=== PATIENT | female | born 1985 | race Asian ===

== ENCOUNTER 2018-02-14 17:51 | Inpatient (IN) | payer OTHER ==
[~2018-02-14 17:51] MED LIST: Dinoprostone* 10 MG VAG.SUPP VAGINAL ONE
--- NOTE | 2018-02-14 18:58 | HP ---
General Information - General Information Maternal Age: 32 Grav: 1 Para: 0 SAB: 0 IEA: 0 Estimated Due Date: 02/07/18 Determined By: LMP Gestational Age in Weeks/Days: 41 w 0d Maternal Blood Type and Rh: AB Positive - Results this Serology/RPR Result: Non-Reactive Rubella Result: Immune HBsAg Result: Negative HIV Result: Negative GBS Culture Result: Negative Past Medical History Pertinent Past Medical History: Non-Contributory Past Medical History Comment: no current problems Pertinent Past Surgical History: None Pertinent Family History: Non-Contributory - Antepartal Records Antepartal Records: Reviewed, Uncomplicated Review of Systems Constitutional: Comfortable CV Complaint: No Respiratory: Shortness of Breath: No Gastrointestinal: No Nausea/Vomiting, Normal Bowel Movement Genitourinary: No Leaking Fluid Musculoskeletal: No Complaint Neurological: No Headache, No Visual Changes Movement: Normal Exam Allergies/Adverse Reactions: Allergies Penicillins Allergy (Unknown, Verified 02/14/18 18:30) See Comment unsure. childhood reaction unknow - Measurements Height: 5 ft 1 in Weight: 130 lb Weight in lbs: [phone] Body Mass Index (BMI): 24.5 Pre- Weight: 97 lb Weight Gained This : 33 lbs and 0 ozs - Exam Breast: - - soft, no masses Extremities: No Edema Heart: Normal Rhythm/Heart Sounds HEENT: No Significant Findings Lungs: Clear Bilaterally Reflexes: DTR 2+ Thyroid: No Thyromegaly - Abdominal Exam Abdomen Exam: Non-Tender - Ultrasound/Biophysical Profile Ultrasound Status: Not Done Targeted Exam Findings Estimated Weight: 7 lbs Cervical Exam: Closed Effacement: Thick Station: -1 Presenting Part: Vertex Membrane Status: Intact EFM Findings - External Monitor Findings Baseline Heart Rate: 130 External Monitor Findings: Accelerations Present, No Pattern of Variable or Late Decelerations, Variability Moderate, Baseline Stable External Monitor Findings Comment: category 1 Contractions: Irregular, Mild - every 8-10 min Assessment/Plan - Assessment primip at 41 wks, unripe cervix, for ripening - Obstetrical Risk Factors Obstetrical Risk Factors: Post-Dates - Plan Plan: Cervical Ripening, Admit - Anticipate Vaginal Delivery - Date/Time of Admission Date of Admission: 02/14/18 Time of Admission: 18:58
[2018-02-15] MEDS ORDERED: Oxytocin in LR* 20 UNITS/1,000 ML BAG IVPB SCH (10:00)
[2018-02-15] MEDS ORDERED: Lidocaine 1%* 5 ML VIAL ONE (10:16)
[2018-02-15 11:23] LABS: ABS Basophils 0 10^3/ul (0-0.2); ABS Eosinophils 0 10^3/ul (0-0.6); ABS Lymphocytes 1.4 10^3/ul (1.0-4.8); ABS Monocytes 0.4 10^3/ul (0-0.8); ABS Neutrophils 8.2 10^3/ul (1.5-7.7); ABS Nucleated RBC 0 10^3/ul; Eosinophil % 0.1 % (0-6); Hematocrit 39 % (35-47); Hemoglobin 12.9 g/dl (12.0-16.0); Lymphocyte % 13.9 % (25-47); Mean Corpuscular HGB Conc 33 g/dl (31-36); Mean Corpuscular Hemoglobin 31 pg (27-31); Mean Corpuscular Volume 92 fL (80-97); Mean Platelet Volume 8.6 fL (7.4-10.4); Nucleated Red Blood Cells % 0; Platelet Count 225 10^3/ul (150-450); Red Cell Distribution Width 13 % (10.5-15)
[2018-02-15] MEDS ORDERED: OBEPIDURAL* 250 ML EPIDURAL ONE (19:23)
[2018-02-15] MEDS ORDERED: EPHEDrine (Pressors)* 50 MG/ML VIAL IV PUSH PRN ×2 (20:38)
[2018-02-15] MEDS ORDERED: Famotidine TAB* 20 MG PO PRN (20:38)
[2018-02-15] MEDS ORDERED: Sodium Citrate/Citric Acid* 15 ML UDC PO PRN (20:38)
[2018-02-15] MEDS ORDERED: Phenylephrine IV* 40 MCG/ML 10 ML SYRINGE IV PUSH PRN ×2 (20:38)
[2018-02-15] MEDS ORDERED: OBEPIDURAL* 250 ML EPIDURAL SCH (21:00)
[2018-02-16] MEDS ORDERED: Witch Hazel PAD* JAR ONE (10:06)
[2018-02-16] MEDS ORDERED: Dibucaine 1% 28.35 GM TUBE ONE (10:06)
[2018-02-16] MEDS ORDERED: Witch Hazel PAD* JAR TOPICAL PRN (11:00)
[2018-02-16] MEDS ORDERED: Acetaminophen TAB* 325 MG PO PRN (11:00)
[2018-02-16] MEDS ORDERED: Glycerin ADULT SUPP PR PRN (11:00)
[2018-02-16] MEDS ORDERED: Dibucaine 1% 28.35 GM TUBE PR PRN (11:00)
--- NOTE | 2018-02-16 11:10 | PROCNOTE ---
[facility] OB: Delivery Note - Delivery A Date of : 02/16/18 Time of : 09:54 [place] Sex: Male Weight at : 6 lb 8 oz Score 1 Minute: 8 Score 5 Minutes: 8 Gestational Age in Weeks and Days at Delivery: 41 Weeks and 2 Days Delivery Method: Spontaneous Vaginal Labor: Induced Did Patient attempt ?: N/A, No Previous Amniotic Fluid: Meconium Estimated Blood Loss: 400 Anesthesia/Analgesia: CEI for Labor Anesthesia Comment: Epidural placed by Dr. Valadez Delivered By: Neha Galeano - Nursery Level of Nursery: NICU - Perineum Perineal Injury: 3rd Degree Extension - and left sulcus tear both repaired Perineal Repair: Repair by Dr. Loza. See MD note - Events Delivery Events of Note: Pitocin During Labor - Additional Delivery Notes Additional Delivery Notes: Pt admitted for postdates induction. Received Cervidil x 1 followed by IV pitocin and amniotomy which led to onset active labor with expected progression to complete. Length of active phase: 11 hours, 14 min. Pushed x 2 hours, 16 min. liveborn male. Slow, controlled delivery of head. VIVIAN to ROT. Shoulders followed easily. Nuchal cord x 1, cord around arm x 1 and cord around leg x 1 all reduced after delivery. vigorous with spontaneous cry. HR> 110bpm. Delivered to maternal abdomen. Apgars 8/8. Cord clamped x 2 and cut by FOB. [place] continued to work to breath with minimal cry despite stimulation and grunting. Moved to warmer for evaluation by special care nurse and neonatology. to NICU for observation. Spontaneous delivery intact placenta. Membranes complete. Fundus firmed to massage with IV pitocin infusing. Careful inspection of perineum showed a partial 3rd degree tear and left sulcus tear. Dr. Loza to bedside for evaluation and repair. See MD notes. EBL 400mL. At time of note mother remains in delivery room, stable. [place] stable in NICU.
[2018-02-16] MEDS ORDERED: Simethicone TAB* 80 MG TAB.CHEW PO SCH (12:30)
[2018-02-16] MEDS ORDERED: Ammonia Inhalant* 1 EA AMP ONE (13:01)
[2018-02-16] MEDS: Docusate CAP* 100 MG PO SCH ×2 (15:48→20:26)
[2018-02-16] MEDS: Ibuprofen TAB* 600 MG PO PRN (20:29)
[2018-02-17 06:43] LABS: ABS Basophils 0 10^3/ul (0-0.2); ABS Eosinophils 0 10^3/ul (0-0.6); ABS Lymphocytes 1.4 10^3/ul (1.0-4.8); ABS Monocytes 0.9 10^3/ul (0-0.8); ABS Neutrophils 10.3 10^3/ul (1.5-7.7); ABS Nucleated RBC 0 10^3/ul; Eosinophil % 0.3 % (0-6); Hematocrit 23 % (35-47); Hemoglobin 7.7 g/dl (12.0-16.0); Lymphocyte % 11.4 % (25-47); Mean Corpuscular HGB Conc 33 g/dl (31-36); Mean Corpuscular Hemoglobin 31 pg (27-31); Mean Corpuscular Volume 93 fL (80-97); Mean Platelet Volume 8.1 fL (7.4-10.4); Nucleated Red Blood Cells % 0; Platelet Count 152 10^3/ul (150-450); Red Blood Count 2.51 10^6/ul (4.00-5.40); Red Cell Distribution Width 13 % (10.5-15); White Blood Count 12.6 10^3/ul (3.5-10.8)
[2018-02-17] MEDS: Ibuprofen TAB* 600 MG PO PRN ×3 (08:04→21:36)
[2018-02-17] MEDS: Docusate CAP* 100 MG PO SCH ×3 (08:04→21:36)
[2018-02-17] MEDS: Ferrous Gluconate TAB* 324 MG TAB PO SCH ×2 (08:22→21:35)
[2018-02-18] MEDS: Ibuprofen TAB* 600 MG PO PRN ×3 (05:55→18:34)
[2018-02-18] MEDS: Ferrous Gluconate TAB* 324 MG TAB PO SCH (08:15)
[2018-02-18] MEDS: Docusate CAP* 100 MG PO SCH ×2 (08:15→13:55)
[2018-02-18 08:55] VITALS: BP 101/50
== END 2018-02-18 18:41 | disposition home or self-care (01) | DRG 806 ==
LOC: MCHOBOUT 17:51 → MCHOB 19:08
PROVIDERS: ADMIT Midwife; ATTEND Midwife
PROC: 3E033VJ Introduction of Other Hormone into Peripheral Vein, Percutaneous Approach (ICD-10-PCS; principal; 2018-02-14)
PROC: 10E0XZZ Delivery of Products of Conception, External Approach (ICD-10-PCS; 2018-02-14)
PROC: 0KQM0ZZ Repair Perineum Muscle, Open Approach (ICD-10-PCS; 2018-02-14)
PROC: 10907ZC Drainage of Amniotic Fluid, Therapeutic from Products of Conception, Via Natural or Artificial Opening (ICD-10-PCS; 2018-02-14)
PROC: 0UQGXZZ Repair Vagina, External Approach (ICD-10-PCS; 2018-02-14)
DX: O48.0 Post-term pregnancy (principal); O22.43 Hemorrhoids in pregnancy, third trimester; Z37.0 Single live birth; O69.81X0 Labor and delivery complicated by cord around neck, without compression, not applicable or unspecified; O69.82X0 Labor and delivery complicated by other cord entanglement, without compression, not applicable or unspecified; Z88.0 Allergy status to penicillin; Z3A.41 41 weeks gestation of pregnancy; O90.81 Anemia of the puerperium; O70.1 Second degree perineal laceration during delivery; O77.0 Labor and delivery complicated by meconium in amniotic fluid
CPT/HCPCS: 36415; 85025; 86850; 86900; 86901; 90686; A9270-GY